=== PATIENT | male | born 1995 | race Two or more races ===

== ENCOUNTER 2021-09-22 16:43 | Emergency (ER) | payer MEDICAID ==
[~2021-09-22] VITALS: Ht 167.6 cm; Wt 69.6 kg
[2021-09-22] MEDS ORDERED: PERTUSS(ACELL),DIPH,TET VAC/PF 0.5 ML SYRINGE IM. ONE (20:30)
[2021-09-22] MEDS ORDERED: POVIDONE-IODINE 10% 15 ML SOLUTION UD TP ONE (21:15)
[2021-09-22 22:00] VITALS: BP 122/79
[2021-09-22] MEDS ORDERED: METHOCARBAMOL 500 MG TABLET PO ONE (22:00)
[2021-09-22] MEDS ORDERED: KETOROLAC TROMETHAMINE 10 MG TABLET PO ONE (22:00)
[2021-09-22] MEDS ORDERED: BACITRACIN 0.9 GM PACKET OINTMENT TP ONE (22:00)
== END 2021-09-22 22:20 | disposition home or self-care (01) ==
LOC: EMS 16:44
DX: S01.01XA Laceration without foreign body of scalp, initial encounter (principal); S20.229A Contusion of unspecified back wall of thorax, initial encounter; F12.90 Cannabis use, unspecified, uncomplicated; F17.290 Nicotine dependence, other tobacco product, uncomplicated; Y04.0XXA Assault by unarmed brawl or fight, initial encounter; Y93.89 Activity, other specified; Y92.89 Other specified places as the place of occurrence of the external cause; Y99.8 Other external cause status
CPT/HCPCS: 12001; 70450; 70486; 72125; 90471; 90715; 99284

== ENCOUNTER 2021-10-22 16:19 | Emergency (ER) | payer MEDICAID ==
[~2021-10-22] VITALS: Ht 172.7 cm; Wt 118.2 kg
[2021-10-22 16:37] VITALS: BP 137/70
== END 2021-10-22 17:33 | disposition home or self-care (01) ==
LOC: EMS 16:45
DX: S01.01XD Laceration without foreign body of scalp, subsequent encounter (principal); Z48.02 Encounter for removal of sutures; F12.90 Cannabis use, unspecified, uncomplicated; Y04.0XXD Assault by unarmed brawl or fight, subsequent encounter
CPT/HCPCS: 99281; Z7502

== ENCOUNTER → 2024-10-14 | Emergency (ER) | payer MEDICAID, OTHER ==
[~2024-10-14] VITALS: Ht 167.6 cm; Wt 77.3 kg
[~2024-10-14] MED LIST: ACET-3385 PO; IBUP-1492 PO
[2024-10-14 18:30] LABS: COVID AG,FIA SOURCE NASAL SWAB
[2024-10-14 18:55] LABS: SARS-COV2 (COVID) ANTIGEN,FIA Negative (Negative)
[2024-10-14 19:00] LABS: INFLUENZA TYPE A NEGATIVE FOR TYPE A (NEGATIVE); INFLUENZA TYPE B NEGATIVE FOR TYPE B (NEGATIVE)
[2024-10-14] MEDS: IBUPROFEN 600 MG TABLET PO ONE (19:30)
[2024-10-14] MEDS: ACETAMINOPHEN 500 MG TABLET PO ONE (19:31)
[2024-10-14 19:47] VITALS: BP 123/80; PULSE 112; RESP 19; TEMP 100.3; O2SAT 96
== END | disposition home or self-care (01) ==
LOC: EMS 17:48
DX: J06.9 Acute upper respiratory infection, unspecified (principal); B97.89 Other viral agents as the cause of diseases classified elsewhere; M79.18 Myalgia, other site; M79.604 Pain in right leg; M79.605 Pain in left leg; F12.90 Cannabis use, unspecified, uncomplicated; F17.210 Nicotine dependence, cigarettes, uncomplicated; Z20.822 Contact with and (suspected) exposure to COVID-19
CPT/HCPCS: 87804; 99283